=== PATIENT | female | born 1975 | race American Indian/Alaskan Native ===

== ENCOUNTER 2018-08-14 10:06 | Emergency (ER) | payer BC ==
--- NOTE | 2018-08-14 11:05 | Emergency Department Report ---
Abscess Boil HPI - HPI Chief Complaint: Skin/Abscess/Foreign Body Stated Complaint: CUTANEOUS ABSCESS OF LABIA Time Seen by Provider: 08/14/18 10:40 Duration: 5 Days Location: Other (suprapublic extending to right labia) History: Yes Pain, No Fever, No Purulent Drainage, No Numbness, No Foreign Body, No Previous History, No Insect Bite HPI: Ms. Petty is a 43 yo female with abscess pelvic region. Moderately severe pain. Moderate pain. Started out as a pustule. She does shave in the region. Gradual onset of symptoms. Pain is worse with palpation and ambulatio n. Achy quality, no radiation, constant pain. No fever no malaise Home Medications: Previous Rx's Medication Instructions Recorded Last Taken Type Sulfamethoxazole/Trimethoprim 1 each PO BID 10 Days #20 tablet 08/14/18 Unknown Rx [Bactrim DS TAB] cephALEXin [Keflex] 500 mg PO Q6HR 10 Days #40 capsule 08/14/18 Unknown Rx Allergies/Adverse Reactions: Allergies Allergy/AdvReac Type Severity Reaction Status Date / Time No Known Allergies Allergy Unverified 08/14/18 10:11 ED Review of Systems ROS: Stated complaint: CUTANEOUS ABSCESS OF LABIA Other details as noted in HPI Constitutional: denies: fever, malaise Cardiovascular: denies: chest pain Gastrointestinal: denies: abdominal pain, nausea, vomiting ED Past Medical Hx - Past Medical History Previous Medical History?: Yes Hx Hypertension: Yes Hx Diabetes: Yes Additional medical history: Hyperlipidemia - Surgical History Past Surgical History?: Yes Additional Surgical History: Thyroidectomy - Social History Smoking Status: Never Smoker Substance Use Type: None - Medications Home Medications: Home Medications Medication Instructions Recorded Confirmed Last Taken Type Sulfamethoxazole/Trimethoprim 1 each PO BID 10 Days #20 tablet 08/14/18 Unknown Rx [Bactrim DS TAB] cephALEXin [Keflex] 500 mg PO Q6HR 10 Days #40 capsule 08/14/18 Unknown Rx ED Abscess Boil Physical Exam - Exam General: Vital signs noted. No distress. Alert and acting appropriately. General: Well-appearing, no acute distress HEENT: Normocephalic atraumatic anicteric sclera Nose: no rhinorrhea Oropharynx: Moist mucous membranes Clear mucous membranes no lesions Neck: supple, no meningismus Chest: No respiratory distress clear to auscultation bilaterally Cardiac: Regular rate and rhythm no murmurs no rubs no gallops Abdomen: Soft nontender nondistended positive bowel sounds no guarding Extremities: No cyanosis no clubbing no edema : large deep abscess 8 cm x 5 cm right mons pubis extending to right labia majora Neuro: Moves all extremities 4, no gross deficits Psychiatric: Alert and oriented 4 normal affect normal judgment normal insight Size: >5 cm Exam: Yes Tenderness, Yes Fluctuance, No Surrounding Cellulites/Erythema, No Lymphangitis, No Crepitation, No Heart Murmur, No Normal Neurologic Exam, No Normal Circulation ED Course Vital Signs 08/14/18 10:11 Temperature 98.9 F Pulse Rate 90 Respiratory 16 Rate Blood Pressure 144/99 O2 Sat by Pulse 99 Oximetry Critical care attestation.: If time is entered above; I have spent that time in minutes in the direct care of this critically ill patient, excluding procedure time. ED Medical Decision Making - Lab Data Result diagrams: 08/14/18 11:49 08/14/18 11:49 - Radiology Data Radiology results: report reviewed Subcutaneous stranding in the right pelvis without discrete fluid collection. - Medical Decision Making Cellulitis in the right pelvic region without no evidence of discrete fluid collection on CT scan. I provided results of the CT scan the patient. She will take these results to her primary care physician. I'll prescribe Bactrim and Keflex. First dose of medications provided in the ED. Also given a referral to general surgeon for follow-up within the next week along side her PCP. ED Disposition Clinical Impression: Pelvic cellulitis in female Disposition: DC-01 TO HOME OR SELFCARE Is pt being admited?: No Does the pt Need Aspirin: No Condition: Stable Instructions: Cellulitis (ED) Prescriptions: Sulfamethoxazole/Trimethoprim [Bactrim DS TAB] 1 each PO BID 10 Days #20 tablet cephALEXin [Keflex] 500 mg PO Q6HR 10 Days #40 capsule Referrals: WESLEY ANDREA MD [Staff Physician] - 2-3 Days Forms: Work/School Release Form(ED)
[2018-08-14 11:58] LABS: Basophils # (Auto) 0.1 K/mm3 (0.0-0.1); Basophils % (Auto) 0.6 % (0.0-1.8); Eosinophils # (Auto) 0.1 K/mm3 (0.0-0.4); Eosinophils % (Auto) 0.6 % (0.0-4.3); Hematocrit 39.5 % (30.3-42.9); Hemoglobin 12.9 gm/dl (10.1-14.3); Lymphocytes # (Auto) 2.4 K/mm3 (1.2-5.4); Lymphocytes % (Auto) 23.2 % (13.4-35.0); Mean Corpuscular HGB Conc 33 % (30-34); Mean Corpuscular Volume 86 fl (79-97); Monocytes % (Auto) 9.4 % (0.0-7.3); Platelet Count 250 K/mm3 (140-440); Red Blood Count 4.61 M/mm3 (3.65-5.03); Red Cell Distribution Width 13.5 % (13.2-15.2)
[2018-08-14 12:13] LABS: BUN/Creatinine Ratio 14; Blood Urea Nitrogen 7 mg/dL (7-17); Calcium 8.8 mg/dL (8.4-10.2); Hemolysis Index 3
--- NOTE | 2018-08-14 14:15 | Cat Scan Report ---
PROCEDURE: CT PELVIS W CON TECHNIQUE: Computerized axial tomography of the pelvis was performed after the IV injection of iodina roberto nonionic contrast. Coronal and sagittal reconstructed imaging provided. CT DOSE LENGTH PRODUCT: 1754.7 mGy-cm. HISTORY: deep abscess suprapubic COMPARISONS: None currently available. FINDINGS: Pelvis: Partially imaged bowel loops are unremarkable. Series 2:75-1 09 demonstrates stranding of the right paramedian anterior subcutaneous fat from the turner prapubic region down to the pubic symphysis. No distinct fluid collection identified. Mild skin thick ening noted. No subcutaneous gas. Underlying musculature is intact. No fistula to the deep pelvic str uctures. Trace fluid in the right pelvis. Uterus: Limited images are unremarkable. Bladder: Unremarkable. There is no pelvic mass or adenopathy. Inguinal regions demonstrate mildly prominent subcentimeter bilateral inguinal lymph nodes. No mass. No hernia. Bones: No suspicious osseous lesions on this limited examination of the skeleton. Metastatic disease better evaluated with bone scan. Degenerative changes are in the spine. IMPRESSION: * Right anterior pelvic paramedian subcutaneous stranding may represent inflammation or swelling. No distinct fluid collection or abscess. No mass. * Possible reactive lymph nodes in both inguinal regions. Right is more notable compared to left. * Trace fluid in the right pelvis is nonspecific. Possibly physiologic. This document is electronically signed by Brandyn Soria MD., August 14 2018 02:12:50 PM ET
[2018-08-14] MEDS ORDERED: BACTRIM DS PO ONE (14:26)
[2018-08-14] MEDS ORDERED: KEFLEX PO ONE (14:26)
[2018-08-14 14:59] VITALS: BP 140/96
== END 2018-08-14 14:58 | disposition home or self-care (01) ==
LOC: ED 10:06
DX: N73.2 Unspecified parametritis and pelvic cellulitis (principal); I10 Essential (primary) hypertension; E11.9 Type 2 diabetes mellitus without complications; E89.0 Postprocedural hypothyroidism
CPT/HCPCS: 36415; 72193; 80048; 85025; 99284; Q9967